=== PATIENT | female | born 1985 | race Caucasian/White ===

== ENCOUNTER 2017-12-02 09:41 | Emergency (ER) | payer BC, OTHER ==
[~2017-12-02] VITALS: Ht 162.6 cm; Wt 76.0 kg
[~2017-12-02 09:41] MED LIST: CIPR500T87 PO; HYDR-3240 PO; METR500T PO
[2017-12-02 10:48] LABS: BASOPHILS # (AUTO) 0.25 x10^3/uL (0-0.1); BASOPHILS % (AUTO) 3 % (0-1); EOSINOPHILS # (AUTO) 0.77 x10^3/uL (0-0.4); EOSINOPHILS % (AUTO) 8 % (1-7); LYMPHOCYTES # (AUTO) 1.73 x10^3/uL (1-3.4); LYMPHOCYTES % (AUTO) 18 % (22-44); MD NO; MEAN CORPUSCULAR HEMOGLOBIN 32.4 pg (27.0-34.8); MEAN CORPUSCULAR HGB CONC 34.6 g/dL (32.4-35.8); MEAN CORPUSCULAR VOLUME 93.7 fL (80-100); MEAN PLATELET VOLUME 8.9 fL (7.4-10.4); MONOCYTES # (AUTO) 0.57 x10^3/uL (0.2-0.8); MONOCYTES % (AUTO) 6 % (2-9); NEUTROPHILS % (AUTO) 66 % (42-75); PLATELET COUNT 419 x10^3/uL (130-400); RED BLOOD COUNT 4.75 x10^6/uL (3.82-5.3); RED CELL DISTRIBUTION WIDTH 12.9 % (9.6-15.2)
[2017-12-02 10:52] LABS: ALBUMIN 3.7 g/dL (3.4-5.0); ANION GAP 8 mmol/L (5-15); CALCIUM 8.7 mg/dL (8.5-10.1); CHLORIDE 106 mmol/L (98-107); CREATININE 0.89 mg/dL (0.55-1.02)
[2017-12-02 10:59] LABS: MICROSCOPIC INDICATED
[2017-12-02 11:00] LABS: CULTURE INDICATED? YES
[2017-12-02 11:14] VITALS: BP 123/79
== END 2017-12-02 11:43 | disposition home or self-care (01) ==
LOC: ED 11:37
DX: N30.01 Acute cystitis with hematuria (principal); N92.1 Excessive and frequent menstruation with irregular cycle; F17.200 Nicotine dependence, unspecified, uncomplicated
CPT/HCPCS: 36415; 80048; 81001; 82040; 84703; 85025; 87077; 87086; 87186; 99284

== ENCOUNTER 2018-11-13 07:22 | Emergency (ER) | payer OTHER ==
[~2018-11-13] VITALS: Ht 162.6 cm; Wt 72.8 kg
[~2018-11-13 07:22] MED LIST changes: +ACET325T14 PO
[2018-11-13 07:28] VITALS: BP 130/95
--- NOTE | 2018-11-13 07:40 | NUR ---
PT STATES SHE HAD ABCESS ON L BUTTOCK DRAINED ON WEDNESDAY, SHE REMOVED THE PACKING ON SAT 11/12. SHE STATES SHE NOTICIED THE SWELLING GOT WORSE AND HAD MORE PAIN. PT DENIES TRAUMA, NO OTHER COMPLAINTS OF PAIN. ER PROVIDER IN TO PARMJIT PT
[2018-11-13] MEDS ORDERED: LIDOCAINE-MPF 1%, 5ML ONE (07:45)
[2018-11-13] MEDS ORDERED: LIDOCAINE-MPF 1%, 5ML INFIL ONE (08:00)
--- NOTE | 2018-11-13 08:52 | NUR ---
Patient given discharge instructions and they have confirmed that they understand the instructions. Patient ambulatory with steady gait. Pt left with all personal belongings, packing, dc paperwork, and prescription. NADN. No obvious defecits observed. Pt encouraged to return if symptoms change or worsen. Pt aware to return for repacking in ED for wound in two days.
== END 2018-11-13 08:55 | disposition home or self-care (01) ==
LOC: ED 08:49
DX: L02.31 Cutaneous abscess of buttock (principal); J45.909 Unspecified asthma, uncomplicated
CPT/HCPCS: 10060; 99283

== ENCOUNTER 2018-12-04 11:46 | Emergency (ER) | payer OTHER ==
[~2018-12-04] VITALS: Ht 162.6 cm; Wt 71.0 kg
[2018-12-04 11:47] VITALS: BP 134/91
[2018-12-04] MEDS ORDERED: LIDOCAINE-MPF 1%, 5ML ONE (12:10)
[2018-12-04] MEDS ORDERED: LIDOCAINE 1%, 10ML INFIL ONE (12:30)
== END 2018-12-04 13:35 | disposition home or self-care (01) ==
LOC: ED 12:18
DX: L02.415 Cutaneous abscess of right lower limb (principal); J45.909 Unspecified asthma, uncomplicated; L40.9 Psoriasis, unspecified
CPT/HCPCS: 10060; 99283

== ENCOUNTER 2019-03-14 06:46 | Inpatient (IN) | payer OTHER ==
[~2019-03-14] VITALS: Ht 162.6 cm; Wt 73.7 kg
[2019-03-14] MEDS ORDERED: SODIUM CHLORIDE FLUSH 10ML SYR IVF ONE (07:30)
[2019-03-14] MEDS ORDERED: MORPHINE SULFATE 4 MG/ML, 1ML ONE (07:44)
[2019-03-14] MEDS ORDERED: ONDANSETRON ODT 4 MG ONE (07:51)
[2019-03-14 07:53] LABS: BASOPHILS # (AUTO) 0.09 x10^3/uL (0-0.1); BASOPHILS % (AUTO) 1 % (0-1); EOSINOPHILS # (AUTO) 0.47 x10^3/uL (0-0.4); EOSINOPHILS % (AUTO) 5 % (1-7); LYMPHOCYTES # (AUTO) 1.69 x10^3/uL (1-3.4); LYMPHOCYTES % (AUTO) 18 % (22-44); MD NO; MEAN CORPUSCULAR HEMOGLOBIN 30.8 pg (27.0-34.8); MEAN CORPUSCULAR HGB CONC 33.1 g/dL (32.4-35.8); MEAN CORPUSCULAR VOLUME 93.1 fL (80-100); MEAN PLATELET VOLUME 8.4 fL (7.4-10.4); MONOCYTES % (AUTO) 5 % (2-9); NEUTROPHILS # (AUTO) 6.82 x10^3/uL (1.8-6.8); NEUTROPHILS % (AUTO) 71 % (42-75); PLATELET COUNT 405 x10^3/uL (130-400); RED BLOOD COUNT 5.08 x10^6/uL (3.82-5.3); RED CELL DISTRIBUTION WIDTH 13.5 % (9.6-15.2)
--- NOTE | 2019-03-14 07:54 | NUR ---
TASK RN: PT RESTING ON GURNEY. NADN. LAZOS. MEDICATED PER JUL.
[2019-03-14 08:00] LABS: ALANINE AMINOTRANSFERASE 31 U/L (12-78); ALBUMIN 3.9 g/dL (3.4-5.0); ANION GAP 7 mmol/L (5-15); CALCIUM 8.8 mg/dL (8.5-10.1); CHLORIDE 108 mmol/L (98-107); CREATININE 0.79 mg/dL (0.55-1.02)
[2019-03-14] MEDS ORDERED: ONDANSETRON ODT 4 MG PO ONE (08:00)
[2019-03-14] MEDS ORDERED: MORPHINE SULFATE 4 MG/ML, 1ML IV PRN (08:00)
[2019-03-14 08:05] LABS: ALKALINE PHOSPHATASE 89 U/L (45-117); BILIRUBIN,TOTAL 0.8 mg/dL (0.2-1.0); TOTAL PROTEIN 8.8 g/dL (6.4-8.2)
[2019-03-14] MEDS ORDERED: OMNIPAQUE 350 MG/ML, 100ML BOTTLE ONE (10:05)
[2019-03-14] MEDS ORDERED: AMPICILLIN/SULBACTAM 3 GM in SODIUM CHLORIDE 0.9% 100 ML IV SCH (10:06)
--- NOTE | 2019-03-14 11:11 | NUR ---
SBAR TELEPHONE REPORT GIVEN TO FRANCI ANGELES IN PRE-OP.
[2019-03-14 11:36] VITALS: BP 117/73
[2019-03-14] MEDS ORDERED: BUPIVACAINE/PF 0.5% ONE (11:46)
[2019-03-14] MEDS ORDERED: EPINEPHRINE 1 MG/ML, 1ML ONE (11:46)
[2019-03-14] MEDS ORDERED: LACTATED RINGERS 1,000 ML IV SCH (11:56)
[2019-03-14] MEDS ORDERED: MIDAZOLAM 1 MG/ML, 2ML ONE (12:01)
[2019-03-14] MEDS ORDERED: KETOROLAC 30 MG/1 ML ONE (12:40)
[2019-03-14] MEDS ORDERED: PROPOFOL 10 MG/ML, 20ML ONE (12:40)
[2019-03-14] MEDS ORDERED: FENTANYL PF 250 MCG/5ML ONE (12:42)
[2019-03-14] MEDS ORDERED: MIDAZOLAM 1 MG/ML, 2ML IV PRN (13:00)
[2019-03-14] MEDS ORDERED: FENTANYL PF 100 MCG/2ML IV PRN (13:00)
[2019-03-14] MEDS ORDERED: hydrALAzine 20 MG/ML, 1ML IV PRN ×2 (13:00→14:00)
[2019-03-14] MEDS ORDERED: ACETAMINOPHEN 325 MG TABLET PO PRN ×2 (13:00→14:00)
[2019-03-14] MEDS ORDERED: OXYcodone 5 MG/5 ML ORAL.SOL UDC PO PRN (13:00)
[2019-03-14] MEDS ORDERED: HYDROmorphone 2 MG/ML, 1ML IVPush PRN (13:00)
[2019-03-14] MEDS ORDERED: PROMETHAZINE 25 MG/ML, 1ML IV PRN (13:00)
[2019-03-14] MEDS ORDERED: MEPERIDINE/PF 25MG/ML,1ML IVPush PRN (13:00)
[2019-03-14] MEDS ORDERED: HALOPERIDOL 5 MG/ML IV PRN (13:00)
[2019-03-14] MEDS ORDERED: DIPHENHYDRAMINE 25 MG CAPSULE PO PRN (14:00)
[2019-03-14] MEDS ORDERED: ONDANSETRON 2MG/ML, 2ML IV PRN (14:00)
[2019-03-14] MEDS ORDERED: DIPHENHYDRAMINE 50 MG/ML, 1ML IV PRN (14:00)
[2019-03-14] MEDS ORDERED: ENALAPRILAT 1.25 MG/ML, 2ML IV PRN (14:00)
[2019-03-14] MEDS ORDERED: ACETAMINOPHEN 650 MG SUPP PR PRN (14:00)
[2019-03-14] MEDS ORDERED: PHARMACOKINETIC CONSULTATION MC ONE (14:00)
[2019-03-14] MEDS ORDERED: LORazepam 2 MG/ML, 1ML IV PRN (14:00)
[2019-03-14] MEDS ORDERED: VANCOMYCIN 1,500 MG in SODIUM CHLORIDE 0.9% 250 ML IV SCH (14:00)
[2019-03-14] MEDS ORDERED: morphine SULFATE 10 MG/ML, 1ML IV PRN (14:00)
[2019-03-14] MEDS ORDERED: VANCOMYCIN PER PHARMACY MC PRN (14:00)
[2019-03-14] MEDS ORDERED: PHARMACOKINETIC MONITORING MC PRN (14:00)
[2019-03-14] MEDS ORDERED: ENOXAPARIN 40 MG/0.4 ML SQ SCH (16:00)
[2019-03-14] MEDS: D5%-LACTATED RINGERS 1,000 ML IV SCH (16:25)
[2019-03-14] MEDS: PIPERACILLIN/TAZO/PMX 3.375GM 50 ML IV SCH (19:58)
[2019-03-14 20:07] VITALS: BP 132/73
[2019-03-14] MEDS: KETOROLAC 30 MG/1 ML IV PRN (20:30)
[2019-03-14] MEDS: LORazepam 1MG TABLET PO PRN (21:58)
[2019-03-14 23:55] VITALS: BP 113/72
[2019-03-15] MEDS: D5%-LACTATED RINGERS 1,000 ML IV SCH (01:30)
[2019-03-15] MEDS: PIPERACILLIN/TAZO/PMX 3.375GM 50 ML IV SCH ×2 (02:09→08:10)
[2019-03-15] MEDS: KETOROLAC 30 MG/1 ML IV PRN (05:33)
[2019-03-15] MEDS: LORazepam 1MG TABLET PO PRN (05:33)
[2019-03-15 05:36] LABS: MEAN CORPUSCULAR HEMOGLOBIN 31.3 pg (27.0-34.8); MEAN CORPUSCULAR HGB CONC 33.2 g/dL (32.4-35.8); MEAN CORPUSCULAR VOLUME 94.2 fL (80-100); MEAN PLATELET VOLUME 9.1 fL (7.4-10.4); PLATELET COUNT 390 x10^3/uL (130-400); RED BLOOD COUNT 4.37 x10^6/uL (3.82-5.3); RED CELL DISTRIBUTION WIDTH 13.3 % (9.6-15.2)
[2019-03-15 05:41] LABS: ALBUMIN 2.8 g/dL (3.4-5.0); ANION GAP 7 mmol/L (5-15); CALCIUM 8.2 mg/dL (8.5-10.1); CHLORIDE 109 mmol/L (98-107); CREATININE 0.79 mg/dL (0.55-1.02)
[2019-03-15 06:05] LABS: BASOPHILS # (AUTO) 0.16 x10^3/uL (0-0.1); BASOPHILS % (AUTO) 1 % (0-1); EOSINOPHILS % (AUTO) 0 % (1-7); LYMPHOCYTES % (AUTO) 4 % (22-44); MD SCAN; MONOCYTES # (AUTO) 0.32 x10^3/uL (0.2-0.8); MONOCYTES % (AUTO) 2 % (2-9); NEUTROPHILS # (AUTO) 18.31 x10^3/uL (1.8-6.8); NEUTROPHILS % (AUTO) 94 % (42-75)
[2019-03-15 07:12] VITALS: BP 106/68
[2019-03-15] MEDS ORDERED: HYDROmorphone 1 MG/ML, 1ML VIAL ONE (07:59)
[2019-03-15] MEDS ORDERED: HYDROmorphone 1 MG/ML, 1ML INJ IV ONE (08:00)
[2019-03-15] MEDS ORDERED: TRAM50TA2 PO (09:40)
[2019-03-15] MEDS ORDERED: SULF1TAB24 PO (09:41)
[2019-03-15 10:30] VITALS: BP 132/89
== END 2019-03-15 11:30 | disposition home or self-care (01) | DRG 345 ==
LOC: ED 07:40 → EDIP 11:07 → 4NE 14:22 → DCLOUNGE 03-15 11:16
PROVIDERS: ADMIT Surgery; ATTEND Surgery
PROC: 0DJD8ZZ Inspection of Lower Intestinal Tract, Via Natural or Artificial Opening Endoscopic (ICD-10-PCS; 2019-03-14)
PROC: 0D9P0ZZ Drainage of Rectum, Open Approach (ICD-10-PCS; principal; 2019-03-14 12:00)
DX: K61.2 Anorectal abscess (principal); L02.31 Cutaneous abscess of buttock; J45.909 Unspecified asthma, uncomplicated; F12.90 Cannabis use, unspecified, uncomplicated; Z87.442 Personal history of urinary calculi
CPT/HCPCS: 36415; J7121; S0020; 72193; 80048; 80053; 82040; 84703; 85025; 87040; 87070; 87075; 87205; G0378; J0171; J0295; J1170; J1650; J1885; J2250; J2543; J2704; J3010; J3370; Q0162; Q9967; J2270; J7050

== ENCOUNTER 2019-03-20 12:31 | Day surgery (SDC) | payer OTHER ==
[~2019-03-20] VITALS: Ht 162.6 cm; Wt 73.2 kg
[~2019-03-20 12:31] MED LIST changes: +SULF1TAB24 PO; +TRAM50TA2 PO
--- NOTE | 2019-03-20 13:31 | NUR ---
pt to room from lobby, gait steady.
--- NOTE | 2019-03-20 13:56 | NUR ---
pt presents to ED with c/o recurrent perineal abcesses, last I&D was done in OR 6 days ago. Pt notes that right and left perineal abcesses were drained last week, she was placed on PO abx, but now right abcesss is growing and size and becoming more painful. pt moved to room 28 d/t acuity, report given to FRANCI Quiñones.
[2019-03-20] MEDS ORDERED: ONDANSETRON 2MG/ML, 2ML IVPush ONE (14:00)
[2019-03-20] MEDS ORDERED: SODIUM CHLORIDE FLUSH 10ML SYR IVF ONE (14:00)
[2019-03-20] MEDS ORDERED: MORPHINE SULFATE 4 MG/ML, 1ML IVPush PRN (14:00)
[2019-03-20] MEDS ORDERED: CLINDAMYCIN PMX 600MG/50ML 50 ML IV ONE (14:00)
--- NOTE | 2019-03-20 14:07 | NUR ---
PT MOVED FROM RME TO CORE. SBAR RPT REC'D FROM [facility], AND ASSUMED PT CARE.
--- NOTE | 2019-03-20 14:20 | NUR ---
AT BS. AWARE OF PLAN FOR IV & RXS. PT VERY TEARFUL.
[2019-03-20] MEDS ORDERED: ONDANSETRON 2MG/ML, 2ML ONE ×2 (14:22→17:02)
[2019-03-20] MEDS ORDERED: MORPHINE SULFATE 4 MG/ML, 1ML ONE (14:22)
[2019-03-20] MEDS ORDERED: CLINDAMYCIN PMX 600MG/50ML 50 ML ONE (14:22)
[2019-03-20 14:31] LABS: MEAN CORPUSCULAR HGB CONC 33.5 g/dL (32.4-35.8); MEAN CORPUSCULAR VOLUME 92.5 fL (80-100); MEAN PLATELET VOLUME 8.5 fL (7.4-10.4); PLATELET COUNT 442 x10^3/uL (130-400); RED BLOOD COUNT 4.83 x10^6/uL (3.82-5.3); RED CELL DISTRIBUTION WIDTH 13.3 % (9.6-15.2)
[2019-03-20 14:34] LABS: ALBUMIN 3.9 g/dL (3.4-5.0); ANION GAP 10 mmol/L (5-15); CALCIUM 9.2 mg/dL (8.5-10.1); CHLORIDE 107 mmol/L (98-107)
[2019-03-20 14:36] LABS: CREATININE 0.81 mg/dL (0.55-1.02)
[2019-03-20] MEDS ORDERED: SODIUM CHLORIDE 0.9% 1,000 ML IV ONE (14:59)
[2019-03-20] MEDS ORDERED: SODIUM CHLORIDE FLUSH 10ML SYR IVF PRN (15:00)
[2019-03-20 15:14] LABS: BASOPHILS # (AUTO) 0.27 x10^3/uL (0-0.1); BASOPHILS % (AUTO) 2 % (0-1); EOSINOPHILS # (AUTO) 0.36 x10^3/uL (0-0.4); EOSINOPHILS % (AUTO) 3 % (1-7); LYMPHOCYTES % (AUTO) 18 % (22-44); MD SCAN; MONOCYTES # (AUTO) 0.77 x10^3/uL (0.2-0.8); MONOCYTES % (AUTO) 7 % (2-9); NEUTROPHILS # (AUTO) 7.85 x10^3/uL (1.8-6.8); NEUTROPHILS % (AUTO) 70 % (42-75)
[2019-03-20 15:42] VITALS: BP 132/88
--- NOTE | 2019-03-20 15:53 | NUR ---
SBAR RPT GIVEN TO DEBBI CEMENTER. DISCUSSED AT LENGTH WITH DEBBI, PT IS VERY UPSET EMOTIONALLY CRYING BUT IS VERY RATIONAL. SHE VERBALIZES FRUSTRATION WITH THE DESEASE PROCESS AND NO UNDERSTANDING OF "WHY DOES THIS KEEP HAPPENING" "I JUST WANT IT FIXED" DEBBI TO SPEAK WITH SURGEON.
[2019-03-20] MEDS ORDERED: EPINEPHRINE 1 MG/ML, 1ML ONE (16:48)
[2019-03-20] MEDS ORDERED: BUPIVACAINE/PF 0.5% ONE (16:48)
[2019-03-20] MEDS ORDERED: DEXAMETHASONE 4 MG/ML, 1ML ONE (17:02)
[2019-03-20] MEDS ORDERED: SUCCINYLCHOLINE 20 MG/ML, 10ML ONE (17:02)
[2019-03-20] MEDS ORDERED: PROPOFOL 10 MG/ML, 20ML ONE (17:02)
[2019-03-20] MEDS ORDERED: FENTANYL PF 250 MCG/5ML ONE (17:05)
[2019-03-20] MEDS ORDERED: MIDAZOLAM 1 MG/ML, 2ML ONE (17:05)
[2019-03-20] MEDS ORDERED: PROMETHAZINE 25 MG/ML, 1ML IV PRN (17:30)
[2019-03-20] MEDS ORDERED: KETOROLAC 30 MG/1 ML IV PRN (17:30)
[2019-03-20] MEDS ORDERED: ALBUTEROL SULFATE 2.5 MG/3 ML NPPB PRN (17:30)
[2019-03-20] MEDS ORDERED: METOCLOPRAMIDE 5 MG/ML, 2ML IV PRN (17:30)
[2019-03-20] MEDS: HYDROmorphone 1 MG/ML, 1ML INJ IV PRN ×2 (17:30→17:50)
[2019-03-20] MEDS ORDERED: hydrALAzine 20 MG/ML, 1ML IV PRN (17:30)
[2019-03-20] MEDS ORDERED: ONDANSETRON 2MG/ML, 2ML IVPush PRN (17:30)
[2019-03-20] MEDS ORDERED: OXYcodone 5 MG/5 ML ORAL.SOL UDC PO PRN (17:30)
[2019-03-20] MEDS ORDERED: LABETALOL 5MG/ML, 20ML IV PRN (17:30)
[2019-03-20] MEDS ORDERED: MEPERIDINE/PF 25MG/0.5ML IVPush PRN (17:30)
[2019-03-20] MEDS ORDERED: FENTANYL PF 100 MCG/2ML IV PRN (17:30)
[2019-03-20] MEDS ORDERED: OXYcodone 5 MG/5 ML ORAL.SOL UDC ONE (17:41)
[2019-03-20] MEDS ORDERED: HYDROmorphone 1 MG/ML, 1ML VIAL ONE (17:41)
[2019-03-20] MEDS ORDERED: KETOROLAC 30 MG/1 ML ONE (18:00)
== END 2019-03-20 20:36 | disposition home or self-care (01) ==
LOC: EDSTATUS 14:37 → ED 14:58 → EDIP 14:59 → UNDOADMIN 14:59 → ED 15:07 → EDIP 18:43 → 4NE 18:43 → OUT 20:36 → UNDODISIN 20:36
PROVIDERS: ATTEND Emergency Medicine
DX: K61.1 Rectal abscess (principal); F17.210 Nicotine dependence, cigarettes, uncomplicated; Z72.89 Other problems related to lifestyle; Z79.899 Other long term (current) drug therapy
CPT/HCPCS: 36415; 46040; 80048; 82040; 84703; 85025; 87040; 87070; 87075; 87205; 96365; 96375; 99285; J0330; J1100; J1170; J1885; J2250; J2270; J2405; J2704; J3010; J7030; G0378; J0171

== ENCOUNTER 2019-09-13 09:34 | Day surgery (SDC) | payer OTHER ==
[~2019-09-13] VITALS: Ht 162.6 cm; Wt 68.1 kg
[~2019-09-13 09:34] MED LIST changes: +ALBU8.5H8 INH; +GARL10002 PO; +GING550C2 PO; +TURM500C4 PO; +aloe vera PO
== END 2019-09-13 10:38 | disposition home or self-care (01) ==
LOC: OUT 09:34
PROVIDERS: ATTEND Surgery
DX: T81.83XA Persistent postprocedural fistula, initial encounter (principal); Z53.8 Procedure and treatment not carried out for other reasons; K61.1 Rectal abscess; Z87.891 Personal history of nicotine dependence; Y83.8 Other surgical procedures as the cause of abnormal reaction of the patient, or of later complication, without mention of misadventure at the time of the procedure
CPT/HCPCS: U0001

== ENCOUNTER 2019-09-15 08:13 | Day surgery (SDC) | payer OTHER ==
[~2019-09-15] VITALS: Ht 162.6 cm; Wt 72.4 kg
[2019-09-15] MEDS ORDERED: LACTATED RINGERS 1,000 ML IV SCH (08:44)
[2019-09-15 08:48] VITALS: BP 129/80
[2019-09-15] MEDS ORDERED: BUPIVACAINE LIPOSOME/PF 10ML INFIL ONE ×2 (08:55→09:00)
[2019-09-15] MEDS ORDERED: CHLORHEXIDINE 15 ML UDC ONE (08:57)
[2019-09-15] MEDS ORDERED: CHLORHEXIDINE 15 ML UDC MM ONE (09:00)
[2019-09-15] MEDS ORDERED: FENTANYL PF 250 MCG/5ML ONE (09:16)
[2019-09-15] MEDS ORDERED: PROPOFOL 50 ML ONE (09:16)
[2019-09-15] MEDS ORDERED: SUCCINYLCHOLINE 20 MG/ML, 10ML ONE (09:17)
[2019-09-15] MEDS ORDERED: MIDAZOLAM 1 MG/ML, 2ML ONE (09:34)
[2019-09-15] MEDS ORDERED: ROCURONIUM 10 MG/ML,10ML ONE (09:44)
[2019-09-15] MEDS ORDERED: CEFOTETAN 1 GM ONE (09:44)
[2019-09-15] MEDS ORDERED: DEXAMETHASONE 4 MG/ML, 1ML ONE (09:57)
[2019-09-15] MEDS ORDERED: ONDANSETRON 2MG/ML, 2ML ONE (09:57)
[2019-09-15] MEDS ORDERED: BUPIVACAINE/PF 0.5% INFIL ONE (10:05)
[2019-09-15] MEDS ORDERED: EPHEDRINE 50 MG/ML, 1ML IM PRN (10:30)
[2019-09-15] MEDS ORDERED: DIPHENHYDRAMINE 50 MG/ML, 1ML IVPush PRN (10:30)
[2019-09-15] MEDS ORDERED: OXYcodone 5 MG/5 ML ORAL.SOL UDC PO PRN (10:30)
[2019-09-15] MEDS ORDERED: PROMETHAZINE 25 MG/ML, 1ML IVPush PRN (10:30)
[2019-09-15] MEDS ORDERED: HYDROmorphone 1 MG/ML, 1ML INJ IVPush PRN (10:30)
[2019-09-15] MEDS ORDERED: ONDANSETRON 2MG/ML, 2ML IVPush PRN (10:30)
[2019-09-15] MEDS ORDERED: MEPERIDINE/PF 25MG/0.5ML IVPush PRN (10:30)
[2019-09-15] MEDS ORDERED: FENTANYL PF 100 MCG/2ML IV PRN (10:30)
[2019-09-15] MEDS ORDERED: FENTANYL PF 100 MCG/2ML ONE (11:22)
[2019-09-15] MEDS ORDERED: OXYcodone 5 MG/5 ML ORAL.SOL UDC ONE (11:22)
[2019-09-15] MEDS ORDERED: ACETAMINOPHEN 650 MG/20.3 ML UDC ONE (11:22)
[2019-09-15] MEDS ORDERED: ACETAMINOPHEN 650 MG/20.3 ML UDC PO PRN (11:30)
== END 2019-09-15 14:45 | disposition home or self-care (01) ==
LOC: OUT 08:13
PROVIDERS: ATTEND Surgery
DX: K61.0 Anal abscess (principal); F32.9 Major depressive disorder, single episode, unspecified; Z79.899 Other long term (current) drug therapy; Z87.891 Personal history of nicotine dependence
CPT/HCPCS: 46280; 88305; J0330; J1100; J2250; J2405; J2704; J3010; J3490; J7120